=== PATIENT | male | born 1940 | race Caucasian/White ===

== ENCOUNTER 2017-07-29 08:30 | Observation (INO) ==
[2017-07-29] MEDS ORDERED: HYDROmorphone 2 MG/ML SYRINGE IV SCH (09:00)
[2017-07-29] MEDS ORDERED: KETOROLAC 15 MG/ML VIAL IV ONE ×2 (09:33→23:10)
--- NOTE | 2017-07-29 09:36 | Emergency Department Note ---
Upper Extremity HPI - General Chief Complaint: Extremity Injury, Upper Stated Complaint: Right elbow pain Time Seen by Provider: 07/29/17 08:45 Source: patient Mode of arrival: wheelchair Limitations: no limitations - History of Present Illness HPI Narrative: This patient has had right elbow pain and swelling for the last several days. He has never had gout or any other joint swelling or arthritis. No history of trauma. No fever or chills. MD Complaint: Injury to:: right, elbow Onset (ago): day(s) Other Injuries: none - Related Data Home Medications Medication Instructions Recorded Confirmed Ascorbic Acid [Vitamin C] 1,000 mg PO HS 02/17/16 07/29/17 Aspirin 81 mg CHEWED DAILY 02/17/16 07/29/17 Finasteride [Proscar] 5 mg PO DAILY 02/17/16 07/29/17 Furosemide [Lasix] 20 mg PO Q2D 02/17/16 07/29/17 HYDROcodone/APAP 10/325MG [[place] 2 tab PO Q4H PRN 02/17/16 07/29/17 10/325Mg] Lisinopril/Hydrochlorothiazide 1 tab PO DAILY 02/17/16 07/29/17 [Zestoretic 20-25 mg Tablet] Loteprednol Etabonate [Lotemax] 1 drp RIGHT EYE HS 02/17/16 07/29/17 Omeprazole [Prilosec] 20 mg PO ACB 02/17/16 07/29/17 Oxybutynin Chloride [Ditropan] 5 mg PO BID 02/17/16 07/29/17 Potassium Chloride [Kdur] 10 meq PO BIDCC 02/17/16 07/29/17 Pravastatin [Pravachol] 40 mg PO HS 02/17/16 07/29/17 Warfarin [Coumadin] 2.5 mg PO TUSA@209902/17/16 07/29/17 Warfarin [Coumadin] 5 mg PO SUMOWETHFR@209902/17/16 07/29/17 ofloxacin 0.3 % eye drops 1 drp OPHTHALMIC BIDP PRN ml 03/05/17 07/29/17 vitamins A,C,F-hyct-hcldut 14,320 1 cap PO DAILY 03/05/17 07/29/17 unit-226 mg-200 unit capsule Previous Rx's Medication Instructions Recorded Docusate Sodium [Colace] 100 mg PO BID #60 cap 06/07/17 Allergies Allergy/AdvReac Type Severity Reaction Status Date / Time No Known Drug Allergies Allergy Verified 07/29/17 08:36 Review of Systems All systems ED: reviewed and negative except as stated. Past Medical History - Past Medical History [facility] Narrative: Medical History Back pain (Chronic) Skin cancer (Chronic) Actinic keratosis (Chronic) Rosacea (Chronic) Urge incontinence (Chronic) Spinal stenosis, lumbar region (Chronic) Neuropathy (Chronic) Spinal stenosis in cervical region (Chronic) Osteoarthritis (Chronic) Cervical radiculopathy (Chronic) Obesity (Chronic) Hypoxemia (Chronic) COPD (chronic obstructive pulmonary disease) (Chronic) GERD (gastroesophageal reflux disease) (Chronic) DVT (deep venous thrombosis) (Chronic) History of Coumadin therapy (Chronic) Ankle edema (Chronic) Fasting hyperglycemia (Chronic) Pure hypercholesterolemia (Chronic) Hypertension (Chronic) Diaphoresis (Chronic) Stasis dermatitis (Chronic) Urinary urgency (Chronic) Urinary frequency (Chronic) History of lumbar laminectomy (Chronic) Past Surgical History Hx of total knee arthroplasty (Chronic) S/P tonsillectomy (Acute) History of fusion of cervical spine (Chronic) History of repair of rotator cuff (Chronic) History of umbilical hernia repair (Chronic) Status post shoulder joint replacement (Chronic) Family History Mother Diabetes Other Hypertension - Social History smoking status: Former smoker Physical Exam Right elbow is swollen and slightly warm without erythema but does show marked pain with any sort of motion. Limitations: no limitations General appearance: alert Head: atraumatic Eye: Present: normal appearance ENT: normal exam Neck: Present: normal inspection Chest: Present: normal inspection Respiratory: Present: normal lung sounds bilaterally Cardiovascular: Present: regular rate, normal rhythm, normal heart sounds Neurological: Present: alert Psychiatric: Present: normal affect, normal mood Skin: Present: warm, dry, intact Course Vital Signs Temperature 99.6 F H 07/29/17 08:30 Pulse Rate 79 07/29/17 08:30 Respiratory Rate 18 07/29/17 08:30 Blood Pressure 153/93 07/29/17 08:30 Pulse Oximetry (%) 96 07/29/17 08:30 Temperature 99.6 F H 07/29/17 08:30 Pulse Rate 86 07/29/17 12:00 Respiratory Rate 18 07/29/17 08:30 Blood Pressure 152/81 07/29/17 11:32 Pulse Oximetry (%) 95 07/29/17 12:00 Extremity Injury, Upper - MDM Narrative Medical decision making narrative: The radiologist aspirated this elbow under ultrasound guidance. The cell count was 111,000. I discussed this case with Dr. Rodriguez and will admit him the hospital on the hospitalist service. Dr. Rodriguez questioned him to get some FFP to reverse his INR and he will taken to surgery to washout the joint. He is given 2 g of Ancef now. - Lab Data Lab results reviewed: Yes I reviewed the patient's lab results. Result diagrams: 07/29/17 10:14 07/29/17 10:14 Lab Results 07/29/17 07/29/17 07/29/17 Range/Units 10:14 10:14 10:14 WBC 12.9 H (4.5-11.0) K/mcL RBC 4.52 (4.50-5.90) M/mcL Hgb 12.9 L (13.5-16.5) g/dL Hct 38.8 L (41.0-55.0) % MCV 86.0 (80.0-100.0) fL MCH 28.5 (26.0-34.0) pg MCHC 33.2 (31.0-36.0) g/dL RDW 14.3 (11.5-14.5) % Plt Count 225 (140-440) K/mcL MPV 7.6 (7.4-10.4) fL Gran % 82.3 H (38.0-78.0) % Lymph % (Auto) 9.1 L (15.5-49.0) % Pine % (Auto) 8.3 (1.0-12.0) % Eos % (Auto) 0 (0.0-7.0) % Baso % (Auto) 0.3 (0.0-2.0) % Gran # 10.6 H (1.8-8.0) K/mcL Lymph # (Auto) 1.2 L (1.5-4.8) K/mcL Pine # (Auto) 1.1 H (0.1-0.9) K/mcL Eos # (Auto) 0 (0.0-0.7) K/mcL Baso # (Auto) 0 (0.0-0.3) K/mcL ESR 27 H (0-15) mm/hr PT 28.6 H (11.9-14.5) sec INR 2.6 H (0.9-1.1) Sodium 139 (133-145) mmol/L Potassium 4.7 (3.3-5.1) mmol/L Chloride 97 (96-108) mmol/L Carbon Dioxide 29 (22-30) mmol/L Anion Gap 13.0 (8-16) BUN 19 (8-23) mg/dl Creatinine 0.7 (0.7-1.2) mg/dl GFR Calculation 90 Glucose 139 H (70-105) mg/dL Uric Acid 3.5 (2.5-8.0) mg/dL Calcium 9.1 (8.6-10.4) mg/dl Total Bilirubin 0.3 (0.0-1.0) mg/dL AST 25 (0-37) U/l ALT 13 (0-40) U/l Alkaline Phosphatase 106 (39-117) U/L C-React Prot High Sens 58.3 H (1.0-3.0) mg/L Total Protein 6.7 (5.9-8.4) gm/dL Albumin 3.9 (3.2-5.2) gm/dL Globulin 2.8 (2.2-3.7) gm/dL Albumin/Globulin Ratio 1.4 (1.0-2.3) Fluid Source Fluid Color Fluid Appearance Fluid RBC /cumm Fluid Tot Cell Count Fluid Nucleated Cells /cumm Fluid Neutrophils % Fluid Lymphocytes % Fluid Monocytes Fluid Eosinophils Fluid Basophils Fluid Plasma Cells Fluid Macrophages Fld Mesothelial Cells 07/29/17 Range/Units 13:35 WBC (4.5-11.0) K/mcL RBC (4.50-5.90) M/mcL Hgb (13.5-16.5) g/dL Hct (41.0-55.0) % MCV (80.0-100.0) fL MCH (26.0-34.0) pg MCHC (31.0-36.0) g/dL RDW (11.5-14.5) % Plt Count (140-440) K/mcL MPV (7.4-10.4) fL Gran % (38.0-78.0) % Lymph % (Auto) (15.5-49.0) % Pine % (Auto) (1.0-12.0) % Eos % (Auto) (0.0-7.0) % Baso % (Auto) (0.0-2.0) % Gran # (1.8-8.0) K/mcL Lymph # (Auto) (1.5-4.8) K/mcL Pine # (Auto) (0.1-0.9) K/mcL Eos # (Auto) (0.0-0.7) K/mcL Baso # (Auto) (0.0-0.3) K/mcL ESR (0-15) mm/hr PT (11.9-14.5) sec INR (0.9-1.1) Sodium (133-145) mmol/L Potassium (3.3-5.1) mmol/L Chloride (96-108) mmol/L Carbon Dioxide (22-30) mmol/L Anion Gap (8-16) BUN (8-23) mg/dl Creatinine (0.7-1.2) mg/dl GFR Calculation Glucose (70-105) mg/dL Uric Acid (2.5-8.0) mg/dL Calcium (8.6-10.4) mg/dl Total Bilirubin (0.0-1.0) mg/dL AST (0-37) U/l ALT (0-40) U/l Alkaline Phosphatase (39-117) U/L C-React Prot High Sens (1.0-3.0) mg/L Total Protein (5.9-8.4) gm/dL Albumin (3.2-5.2) gm/dL Globulin (2.2-3.7) gm/dL Albumin/Globulin Ratio (1.0-2.3) Fluid Source Right elbow Fluid Color Red Fluid Appearance Turbid Fluid RBC > [id number] /cumm Fluid Tot Cell Count 100 Fluid Nucleated Cells [id number] /cumm Fluid Neutrophils 97 % Fluid Lymphocytes 3 % Fluid Monocytes Not Reportable Fluid Eosinophils Not Reportable Fluid Basophils Not Reportable Fluid Plasma Cells Not Reportable Fluid Macrophages Not Reportable Fld Mesothelial Cells Not Reportable Disposition Pt seen by [facility]/PA only: No Clinical Impression: Septic arthritis of elbow, right Disposition: Xfer As Outpt/Obs ([facility]) Condition: Good Referrals: Blanca Marrero MD [Primary Care Provider] - Time of Disposition: 16:11
[2017-07-29] MEDS ORDERED: HYDROmorphone 2 MG/ML SYRINGE IM ONE (09:39)
--- NOTE | 2017-07-29 10:15 | XRay Report ---
HISTORY: Reason for Exam:severe pain at right elbow FINDINGS: There is a large amount soft tissue swelling surrounding the elbow. There may be a joint effusion. No healed fractures seen involving the radial head. There is also a bone fragment adjacent to the lateral epicondyle which is well-corticated and measures 5 x 9 mm. There is a larger well-corticated dystrophic calcification above the lateral epicondyle which measures 1.6 x 2.0 cm. No donor site is seen. There is spurring of the coronoid process of the ulna. No bone erosion or periosteal elevation are present. IMPRESSION: Large amount of soft tissue swelling surrounding the elbow which may be due to edema or cellulitis Joint effusion which may be due to the underlying arthritis or a septic joint. There is no radiographic evidence of osteomyelitis Interpreted and Authenticated by: Neno Doty 07/29/17
[2017-07-29 10:48] LABS: Basophils # (Auto) 0 K/mcL (0.0-0.3); Basophils % (Auto) 0.3 % (0.0-2.0); Eosinophils # (Auto) 0 K/mcL (0.0-0.7); Eosinophils % (Auto) 0 % (0.0-7.0); Granulocytes % (Auto) 82.3 % (38.0-78.0); Lymphocytes # (Auto) 1.2 K/mcL (1.5-4.8); Lymphocytes % (Auto) 9.1 % (15.5-49.0); Mean Corpuscular HGB Conc 33.2 g/dL (31.0-36.0); Mean Corpuscular Hemoglobin 28.5 pg (26.0-34.0); Monocytes # (Auto) 1.1 K/mcL (0.1-0.9); Monocytes % (Auto) 8.3 % (1.0-12.0); Platelet Count 225 K/mcL (140-440); RBC 4.52 M/mcL (4.50-5.90); Red Cell Distribution Width 14.3 % (11.5-14.5)
[2017-07-29 11:16] LABS: ALT/SGPT 13 U/l (0-40); Albumin 3.9 gm/dL (3.2-5.2); Albumin/Globulin Ratio 1.4 (1.0-2.3); Alkaline Phosphatase 106 U/L (39-117); Blood Urea Nitrogen 19 mg/dl (8-23); Uric Acid 3.5 mg/dL (2.5-8.0)
[2017-07-29 11:20] LABS: CRP,High Sensitivity 58.3 mg/L (1.0-3.0)
[2017-07-29 11:33] LABS: Erythrocyte Sedimentation Rate 27 mm/hr (0-15)
--- NOTE | 2017-07-29 13:38 | Ultrasound Report ---
History: Severe elbow pain with joint effusion. Patient is anticoagulated Technique: The procedure risks were spine the patient consented. A complex collection of fluid was localized along the posterior lateral border of the elbow joint. The overlying skin was prepped with ChloraPrep then anesthetized with 1% lidocaine. Using ultrasound guidance a Yueh needle was inserted into the fluid collection. The fluid collection is under pressure and squirted through the needle after removal of the stylette. 17 cc of purulent bloody fluid was removed. Not all of the fluid could be drained since it is multiloculated and the patient was in too much pain for the to aspirate from multiple sites. The fluid was sent to laboratory for analysis. He had no abnormal bleeding following the procedure. Impression: Successful aspiration of purulent bloody fluid from the right elbow Interpreted and Authenticated by: Neno Doty 07/29/17
[2017-07-29 15:56] LABS: Appearance, Body Fluid TURBID; Color, Body Fluid RED; Nucleated Cells,Body Fld 111520 /cumm; RBC, Body Fluid > 100000 /cumm; Total Cell Count Body Fld 100
[2017-07-29] MEDS ORDERED: ceFAZolin 1 GM VIAL IV ONE (16:07)
[2017-07-29] MEDS ORDERED: LACTATED RINGERS 1,000 ML IV SCH ×3 (16:15→22:00)
[2017-07-29] MEDS ORDERED: 0.9 % SODIUM CHLORIDE 250 ML IV SCH (17:00)
[2017-07-29] MEDS ORDERED: ACETAMINOPHEN 325 MG TABLET PO PRN ×2 (17:53→23:56)
[2017-07-29] MEDS ORDERED: HYDROcodone/APAP 10/325MG TABLET PO PRN ×2 (17:53→23:00)
[2017-07-29] MEDS ORDERED: ONDANSETRON 4 MG/2 ML VIAL IV PRN ×4 (17:53→23:56)
--- NOTE | 2017-07-29 17:53 | Internal Med History&Physical ---
Medical - H&P: HPI Patient information: Note initiated : 07/29/17 at 5:47 pm Service Date, if different from initiated Date: [] Patient: Ken Dwyer 76 y/o M admitted on 07/29/17 for Right elbow pain. 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 History is obtained in speaking to the patient, his , Dr. Gaona in the ED as well as reviewing records available. Patient was seen by Dr. Page on 07/19, at that time he is having some pain in the right elbow. He does have a history of past ulnar nerve surgery in that elbow, and it was felt to be secondary to that. He had no swelling or warmth in the elbow at that time. He had stable minor pain in the elbow until yesterday when he became rapidly progressive. The pain was severe in nature. It hurt with any movement of the elbow. There was pain with dangling with gravity. Overnight it became worse. He had to use hydrocodone for the pain, normally he uses hydrocodone intermittently during the day for back pain, had used more for his elbow pain. Eventually had sleep in a chair to try to find a comfortable position. Early this morning he presents to the emergency department. Patient is on warfarin as noted, his INR is 2.6. Patient eventually had aspiration of his right elbow joint with infected looking fluid aspirated with 111,000 white cells on cell count. Dr. Rodriguez for orthopedics was consult. He plans to take the patient for washout of the right elbow. He is now being hospitalized for reversal of his INR prior to that procedure. Patient really only has complaints of elbow pain. He's had no fever or chills. No cough or sputum production. He's had no chest pain or tightness. Physical activity is unlimited due to dyspnea, though his physical activity is limited due to arthritis and prior knee replacements. He has no history coronary disease, no history of CHF. He does have a history of COPD, uses oxygen night, apparently for sleep apnea purposes. No cough or sputum production is noted, no chest tightness, no wheezing. No nausea or vomiting, no diarrhea, no abdominal pain, no focal neurologic symptoms. He's had no recent worsening of chronic mild lower extremity edema. He does use Lasix for his edema. He does not recall the inciting event for his DVTs, has been maintained on warfarin for several years to prevent recurrence. Review of systems: Except as noted in history of present illness, a full 11 point review of systems is otherwise negative. Medical - H&P: PMH Medical history: Septic arthritis of elbow, right (Acute) Back pain (Chronic) Skin cancer (Chronic) Actinic keratosis (Chronic) Rosacea (Chronic) Urge incontinence (Chronic) Spinal stenosis, lumbar region (Chronic) Neuropathy (Chronic) Spinal stenosis in cervical region (Chronic) Osteoarthritis (Chronic) Cervical radiculopathy (Chronic) Obesity (Chronic) Hypoxemia (Chronic) COPD (chronic obstructive pulmonary disease) (Chronic) GERD (gastroesophageal reflux disease) (Chronic) DVT (deep venous thrombosis) (Chronic) History of Coumadin therapy (Chronic) Ankle edema (Chronic) Fasting hyperglycemia (Chronic) Pure hypercholesterolemia (Chronic) Hypertension (Chronic) Diaphoresis (Chronic) Stasis dermatitis (Chronic) Urinary urgency (Chronic) Urinary frequency (Chronic) History of lumbar laminectomy (Chronic) Surgical history: Hx of total knee arthroplasty (Chronic) S/P tonsillectomy (Acute) History of fusion of cervical spine (Chronic) History of repair of rotator cuff (Chronic) History of umbilical hernia repair (Chronic) Status post shoulder joint replacement (Chronic) Pertinent family history: No history of thromboembolic disease. There is a history of diabetes and hypertension. Social history: The patient is a former smoker. Some alcohol Use Medical - H&P: Meds Home Medications Medication Instructions Recorded Confirmed Type Ascorbic Acid [Vitamin C] 1,000 mg PO HS 02/17/16 07/29/17 History Aspirin 81 mg CHEWED DAILY 02/17/16 07/29/17 History Finasteride [Proscar] 5 mg PO DAILY 02/17/16 07/29/17 History Furosemide [Lasix] 20 mg PO Q2D 02/17/16 07/29/17 History HYDROcodone/APAP 10/325MG [[place] 2 tab PO Q4H PRN 02/17/16 07/29/17 History 10/325Mg] Lisinopril/Hydrochlorothiazide 1 tab PO DAILY 02/17/16 07/29/17 History [Zestoretic 20-25 mg Tablet] Loteprednol Etabonate [Lotemax] 1 drp RIGHT EYE HS 02/17/16 07/29/17 History Omeprazole [Prilosec] 20 mg PO ACB 02/17/16 07/29/17 History Oxybutynin Chloride [Ditropan] 5 mg PO BID 02/17/16 07/29/17 History Potassium Chloride [Kdur] 10 meq PO BIDCC 02/17/16 07/29/17 History Pravastatin [Pravachol] 40 mg PO HS 02/17/16 07/29/17 History Warfarin [Coumadin] 2.5 mg PO TUSA@209902/17/16 07/29/17 History Warfarin [Coumadin] 5 mg PO SUMOWETHFR@209902/17/16 07/29/17 History vitamins A,C,P-odug-chsuwg 14,320 1 cap PO DAILY 03/05/17 07/29/17 History unit-226 mg-200 unit capsule Docusate Sodium [Colace] 100 mg PO BID #60 cap 06/07/17 07/29/17 Rx Allergies Allergy/AdvReac Type Severity Reaction Status Date / Time No Known Drug Allergies Allergy Verified 07/29/17 08:36 Medical - H&P: Exam - Constitutional Vitals: Temp Pulse Resp BP Pulse Ox 99.6 F H 86 18 152/81 95 07/29/17 08:30 07/29/17 12:00 07/29/17 08:30 07/29/17 11:32 07/29/17 12:00 Exam: General: Alert, in no acute distress HEENT: Normocephalic. Pupils are equally round and reactive to light. Sclera are anicteric. 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 No conjunctival injection. Tongue is midline. Neck: Supple, no meningismus. No thyromegaly. Chest: Clear to auscultation bilaterally with no rales or wheezes. No accessory muscle use. Cardiovascular: Regular rate and rhythm without murmur gallop or rub. Carotid pulses are 2+ without bruit. There is 1+ lower extremity edema. JVP is normal. Abdomen: Soft, obese, nontender without guarding or rebound. Active bowel sounds. No hepatosplenomegaly appreciated, though exam limited by body habitus. Skin: Warm, dry. No rash. Skin turgor is normal.. Chronic venous stasis changes bilateral distal legs. Musculoskeletal: Edema with faint erythema of the right elbow. There is pain with any passive or active range of motion. No crepitus. Left elbow is without swelling or pain. Digits without cyanosis or clubbing. Neuro: Alert, oriented X3. Cranial nerves II through XII grossly intact. Sensation intact to light touch. Psychiatric: Affect and orientation are normal. Good insight. Medical - H&P: Reslt - Labs CBC & Chem 7: 07/29/17 10:14 07/29/17 10:14 Labs: Short CBC 07/29/17 Range/Units 10:14 WBC 12.9 H (4.5-11.0) K/mcL Hgb 12.9 L (13.5-16.5) g/dL Hct 38.8 L (41.0-55.0) % Plt Count 225 (140-440) K/mcL BMP 07/29/17 10:14 Sodium 139 Potassium 4.7 Chloride 97 Carbon Dioxide 29 BUN 19 Creatinine 0.7 Glucose 139 H Calcium 9.1 Liver Function 07/29/17 Range/Units 10:14 Total Bilirubin 0.3 (0.0-1.0) mg/dL AST 25 (0-37) U/l ALT 13 (0-40) U/l Alkaline Phosphatase 106 (39-117) U/L Albumin 3.9 (3.2-5.2) gm/dL Microbiology 07/29/17 13:35 Gram Stain - Final Drainage - Right Arm no organisms seen Body fluid cell count: >100,000 RBC, 111,520 nucleated cells, 97% neutrophils - Impressions Elbow XR IMPRESSION: Large amount of soft tissue swelling surrounding the elbow which may be due to edema or cellulitis Joint effusion which may be due to the underlying arthritis or a septic joint. There is no radiographic evidence of osteomyelitis Medical - H&P: A/P (1) Septic arthritis of elbow, right Current visit: Yes Status: Acute - Narrative A/P Narrative: 76-year-old male presenting with acute worsening of right elbow pain associated with erythema. Diagnostic arthrocentesis consistent with septic joint. Septic right elbow. Surgical washout will be complicated by his coagulopathy from therapeutic use of warfarin. INR is 2.6. Suspect staph or strep as etiology. Plan: 1. Hospitalization observation 2. 2 units of fresh frozen plasma 3. Orthopedic consult, Dr. Rodriguez called by the ED 4. To the OR for washout. 5. Ancef given in the ED, we'll discuss which antibiotics to continue postoperatively, follow-up culture. History of deep venous thrombosis, on warfarin. INR 2.6 and therapeutic at presentation. He took his last warfarin this morning, is 2.5 mg, which was a missed dose from yesterday evening. Plan: FFP to acutely reverse INR for surgery. We will use Lovenox for DVT prophylaxis along with SCDs while he is hospitalized. INR can be allowed to drift out at discharge. COPD, no evidence of exacerbation. Hypertension. Apparently controlled on home regimen. Plan: Continue. Hypercholesterolemia, on statin Plan: Continue Surgical risk: No further risk stratification prior to going to the OR. No evidence of decompensated heart failure or of COPD exacerbation. No prior history of coronary artery disease, he has tolerated anesthesia in the past, most recently a month and a half ago with a shoulder replacement. CODE STATUS is full code. Prophylaxis: Lovenox and PPI.
[2017-07-29] MEDS: 0.9 % SODIUM CHLORIDE 10 ML SYRINGE IV SCH (18:58)
--- NOTE | 2017-07-29 19:57 | Ultrasound Report ---
History: New onset severe right elbow pain Findings: There is a complex fluid collection along the posterior lateral aspect of the elbow joint. Measures approximately 2.9 x 4.7 cm. Contains both fluid and solid components. Impression: Complex fluid collection around the elbow. This could be a septic joint or hemarthrosis Interpreted and Authenticated by: Neno Doty 07/29/17
[2017-07-29] MEDS ORDERED: SIMVASTATIN 20 MG TABLET PO SCH (21:00)
[2017-07-29] MEDS ORDERED: DOCUSATE SODIUM 100 MG CAPSULE PO SCH (21:00)
--- NOTE | 2017-07-29 21:32 | Orthopedic Consult Note ---
History of Present Illness - HPI Patient information: Note initiated : 07/29/17 at 9:27 pm Service Date, if different from initiated Date: [] Patient: Ken Dwyer 76 y/o M admitted on 07/29/17 for Right elbow pain. Chief Complaint: [right elbow pain Patient came to the ER complaining of severe right elbow pain that worsened this past Sunday. He had a reverse total shoulder arthroplasty with Dr. Peralta on June 06 and reports elbow pain since that time, however it worsened this past Sunday without known injury. He denies any wounds or drainage from the elbow as well as any prior history of a septic joint or gout. He reports some numbness and tingling in his small and ring finger on that side as well as some forearm and wrist discomfort. He denies shoulder or neck pain. The patient denies nausea, vomiting, fever, chills or recent infection of any kind. He has a PMH significant for neuropathy, OA, cervical radiculopathy, COPD, DVT, HTN. He has had multiple surgeries and denies anesthetic complications. The patient is a former tobacco user. On arrival, the elbow was aspirated under US guidance and found to have a cell count of 111,000 and an elevated CRP. His INR was above 2 so the patient was given FFP.] Consult date: 07/29/17 Consult reason: joint pain Review of Systems Constitutional: no chills, no fever(s) Cardiovascular: dyspnea, no chest pain, no palpatations Respiratory: no cough, no dyspnea, no wheezing Musculoskeletal: arthralgias, joint swelling, limited range of motion, numbness , tingling Musculoskeletal: right: elbow pain, elbow stiffness, elbow swelling Medications and Allergies Home Medications Medication Instructions Recorded Confirmed Type Ascorbic Acid [Vitamin C] 1,000 mg PO HS 02/17/16 07/29/17 History Aspirin 81 mg CHEWED DAILY 02/17/16 07/29/17 History Finasteride [Proscar] 5 mg PO DAILY 02/17/16 07/29/17 History Furosemide [Lasix] 20 mg PO Q2D 02/17/16 07/29/17 History HYDROcodone/APAP 10/325MG [[place] 2 tab PO Q4H PRN 02/17/16 07/29/17 History 10/325Mg] Lisinopril/Hydrochlorothiazide 1 tab PO DAILY 02/17/16 07/29/17 History [Zestoretic 20-25 mg Tablet] Loteprednol Etabonate [Lotemax] 1 drp RIGHT EYE HS 02/17/16 07/29/17 History Omeprazole [Prilosec] 20 mg PO ACB 02/17/16 07/29/17 History Oxybutynin Chloride [Ditropan] 5 mg PO BID 02/17/16 07/29/17 History Potassium Chloride [Kdur] 10 meq PO BIDCC 02/17/16 07/29/17 History Pravastatin [Pravachol] 40 mg PO HS 02/17/16 07/29/17 History Warfarin [Coumadin] 2.5 mg PO TUSA@209902/17/16 07/29/17 History Warfarin [Coumadin] 5 mg PO SUMOWETHFR@209902/17/16 07/29/17 History vitamins A,C,R-fcam-zwpfoj 14,320 1 cap PO DAILY 03/05/17 07/29/17 History unit-226 mg-200 unit capsule Docusate Sodium [Colace] 100 mg PO BID #60 cap 06/07/17 07/29/17 Rx Allergies Allergy/AdvReac Type Severity Reaction Status Date / Time No Known Drug Allergies Allergy Verified 07/29/17 08:36 Physical Examination - Elbow right Location of pain: anterior, posterior, medial, lateral, forearm, other Pain modifiers: with motion, at rest Stiffness: unable to fully bend, unable to fully straighten, unable to fully supinate, unable to fully pronate Swelling: of the elbow Appearance: swelling, warmth Tenderness with palpation: radiocapitellar, ulnotrochlear, olecranon Strength: body sander: 5/5 Tests: Tinel's sign ulnar nerve: positive Assessment and Plan (1) Septic arthritis of elbow, right Assessment: septic arthritis of right elbow Plan: -After the patient's elbow was examined by myself and Dr. Rodriguez, the recommended course of action is an I&D of the right elbow. The US guided aspirate showed a high cell count with high neutrophil content. A septic right elbow is highly suspected. We discussed the recommended procedure at length with the patient including the potential risks and benefits associated with surgery such as risk of infection, blood clot, wound healing delay, injury to heart and lungs associated with anesthesia. No guarantees were made. The patient understands the risks and wishes to proceed with surgery. The surgery is scheduled for today with Dr. Rodriguez. -admitted overnight for IV antibiotics -post op orders will be entered by Dr. Rodriguez Status: Acute Exam Vital signs: Temp Pulse Resp BP Pulse Ox 99.4 F H 81 20 147/91 94 07/29/17 18:57 07/29/17 18:57 07/29/17 18:57 07/29/17 18:57 07/29/17 20:00 Constitutional: well developed, well nourished, no acute distress Head: normocephalic, atraumatic Respiratory: clear to auscultation bilaterally Cardiovascular: regular rate & rhythm with no murmurs, rubs or gallops, no thrill or palpable murmurs, other (stasis dermatitis, 3+ pitting edema bilaterally) Skin: no rashes, no lesions Neurologic: sensation intact to touch Psychiatric: oriented to person, place and time Additional findings: Radial pulses 2+ b/l. B/l UE NVI to light touch and motor grossly intact
[2017-07-29] MEDS ORDERED: MEPERIDINE 25 MG/ML SYRINGE IV PRN (21:51)
[2017-07-29] MEDS ORDERED: METHOCARBAMOL 1,000 MG/10 ML VIAL IV PRN (21:51)
[2017-07-29] MEDS ORDERED: fentaNYL 100 MCG/2 ML VIAL IV PRN (21:51)
[2017-07-29] MEDS ORDERED: IPRATROPIUM/ALBUTEROL 3 ML AMPUL.NEB NEB PRN (21:51)
[2017-07-29] MEDS ORDERED: MIDAZOLAM 2 MG/2 ML VIAL IV ONE (22:05)
[2017-07-29] MEDS ORDERED: GLYCOPYRROLATE 0.2 MG/ML VIAL IV ONE (22:05)
[2017-07-29] MEDS ORDERED: KETAMINE 100 MG/ML ML IV ONE (22:05)
[2017-07-29] MEDS ORDERED: ONDANSETRON 4 MG/2 ML VIAL IV ONE (22:05)
[2017-07-29] MEDS ORDERED: ETOMIDATE 20 MG/10 ML VIAL IV ONE (22:05)
[2017-07-29] MEDS ORDERED: GENTAMICIN SULFATE 800 MG/20 ML VIAL IR ONE (22:38)
[2017-07-29] MEDS ORDERED: VANCOMYCIN 1,000 MG in 0.9 % SODIUM CHLORIDE 250 ML IV SCH (23:00)
[2017-07-29] MEDS ORDERED: METHOCARBAMOL 750 MG TABLET PO PRN (23:00)
[2017-07-29] MEDS ORDERED: BENZOCAINE/MENTHOL 1 LOZENGE PO PRN ×2 (23:00→23:56)
[2017-07-29] MEDS ORDERED: 0.9 % SODIUM CHLORIDE 1,000 ML IV SCH (23:00)
--- NOTE | 2017-07-29 23:00 | Brief Operative Note ---
Date of procedure: 07/29/17 Pre-op diagnosis: right elbow intraarticular infection Post-op diagnosis: same Procedure: right elbow arthrotomy, irrigation and debridement of infection; aspiration of wrist joint Grafts/Implants: Yes Anesthesia: GETA Complications: none Surgeon: Lucio Rodriguez Rag Collector: Delia Cote Estimated blood loss (cc): 20 Specimens Removed/Pathology: other (culture elbow and wrist) Condition: stable Disposition: PACU
[2017-07-29] MEDS ORDERED: VANCOMYCIN PER PHARMACY IV ONE (23:05)
[2017-07-29] MEDS ORDERED: ACETAMINOPHEN 1,000 MG/100 ML BOTTLE IV ONE (23:11)
[2017-07-29] MEDS ORDERED: VANCOMYCIN 1,500 MG in 0.9 % SODIUM CHLORIDE 500 ML IV ONE (23:15)
[2017-07-29] MEDS ORDERED: VANCOMYCIN 500 MG VIAL ONE (23:35)
[2017-07-30] MEDS: 0.9 % SODIUM CHLORIDE 1,000 ML IV SCH ×3 (00:08→16:04)
[2017-07-30] MEDS: LACTATED RINGERS 1,000 ML IV SCH ×2 (00:34→10:13)
[2017-07-30] MEDS: 0.9 % SODIUM CHLORIDE 10 ML SYRINGE IV SCH ×5 (00:35→20:44)
[2017-07-30] MEDS: METHOCARBAMOL 750 MG TABLET PO PRN ×2 (00:47→19:27)
[2017-07-30] MEDS ORDERED: METHOCARBAMOL 750 MG TABLET PO ONE (00:55)
[2017-07-30] MEDS: HYDROcodone/APAP 10/325MG TABLET PO PRN ×6 (03:11→23:09)
[2017-07-30] MEDS ORDERED: HYDROcodone/APAP 10/325MG TABLET PO ONE (03:17)
[2017-07-30] MEDS ORDERED: 0.9 % SODIUM CHLORIDE 10 ML SYRINGE IV PRN (04:08)
[2017-07-30 05:46] LABS: Mean Cell Volume 86.1 fL (80.0-100.0); Mean Corpuscular HGB Conc 33.3 g/dL (31.0-36.0); Mean Corpuscular Hemoglobin 28.7 pg (26.0-34.0); Platelet Count 208 K/mcL (140-440); Red Cell Distribution Width 14.4 % (11.5-14.5)
[2017-07-30] MEDS ORDERED: 0.9 % SODIUM CHLORIDE 10 ML SYRINGE IV SCH ×2 (06:00)
[2017-07-30 06:47] LABS: Blood Urea Nitrogen 17 mg/dl (8-23)
[2017-07-30] MEDS: PANTOPRAZOLE 40 MG TABLET PO SCH (07:06)
[2017-07-30] MEDS ORDERED: VANCOMYCIN PER PHARMACY IV SCH (07:15)
[2017-07-30] MEDS ORDERED: PANTOPRAZOLE 40 MG TABLET PO SCH (07:30)
[2017-07-30 08:10] LABS: Band Neutrophils % 1 % (0-10); Eosinophils % (Manual) 1 % (0-7); Lymphocytes % 22 % (15-49); Monocytes % (Manual) 9 % (1-12); RBC Morphology NORMAL (NORMAL); Segmented Neutrophils % 67 % (38-78)
[2017-07-30 08:18] LABS: Platelet Estimate NORMAL (NORMAL)
[2017-07-30] MEDS: LISINOPRIL 20 MG TABLET PO SCH (08:45)
[2017-07-30] MEDS: FINASTERIDE 5 MG TABLET PO SCH (08:45)
[2017-07-30] MEDS: ENOXAPARIN 40 MG/0.4 ML SYRINGE SQ SCH ×2 (08:45→11:32)
[2017-07-30] MEDS: DOCUSATE SODIUM 100 MG CAPSULE PO SCH ×2 (08:45→20:43)
[2017-07-30] MEDS: HYDROCHLOROTHIAZIDE 25 MG TABLET PO SCH (08:45)
[2017-07-30] MEDS ORDERED: HYDROCHLOROTHIAZIDE 25 MG TABLET PO SCH (09:00)
[2017-07-30] MEDS ORDERED: ENOXAPARIN 40 MG/0.4 ML SYRINGE SQ SCH (09:00)
[2017-07-30] MEDS ORDERED: DOCUSATE SODIUM 100 MG CAPSULE PO SCH ×2 (09:00)
[2017-07-30] MEDS ORDERED: FINASTERIDE 5 MG TABLET PO SCH (09:00)
[2017-07-30] MEDS ORDERED: LISINOPRIL 20 MG TABLET PO SCH (09:00)
[2017-07-30] MEDS: VANCOMYCIN 1,500 MG in 0.9 % SODIUM CHLORIDE 500 ML IV SCH ×2 (09:10→20:44)
--- NOTE | 2017-07-30 11:06 | Orthopedic Progress Note ---
Subjective Patient information: Note initiated : 07/30/17 at 11:03 am Service Date, if different from initiated Date: [] Patient: Ken Dwyer 76 y/o M admitted on 07/29/17 for Right elbow pain. Chief Complaint: [] Interval history: doing well. pain much improved Objective Vital signs: Vital Signs Temp Pulse Pulse Pulse Resp BP BP 07/30/17 10:59 98.7 F 18 112/64 07/30/17 08:00 07/30/17 07:28 93 H 16 07/30/17 06:33 98.8 F 20 108/67 07/30/17 03:18 98.6 F 100 H 19 131/79 07/30/17 03:00 98.7 F 105 H 19 107/68 07/30/17 02:10 98.9 F 110 H 20 155/72 07/30/17 01:54 105 H 18 130/72 07/30/17 01:40 108 H 18 126/69 07/30/17 01:25 105 H 18 128/73 07/30/17 01:09 101 H 19 146/77 07/30/17 00:55 98.4 F 96 H 18 149/88 07/30/17 00:30 99.5 F H 96 H 18 159/91 07/30/17 00:14 98.3 F 98 H 18 159/95 07/30/17 00:00 98.3 F 99 H 18 162/90 07/29/17 23:47 99.5 F H 100 H 18 140/83 07/29/17 23:38 99.5 F H 101 H 19 150/87 07/29/17 23:33 99.5 F H 100 H 19 150/87 07/29/17 23:28 100.0 F H 97 H 21 143/83 07/29/17 23:23 100.0 F H 99 H 22 143/86 07/29/17 23:18 100.0 F H 103 H 20 151/89 07/29/17 23:13 100.1 F H 100 H 20 162/86 07/29/17 23:08 102.8 F H 113 H 113 H 20 141/77 07/29/17 21:10 98.8 F 89 19 07/29/17 20:47 99.2 F H 83 18 07/29/17 20:37 98.9 F 89 20 07/29/17 20:30 98.9 F 92 H 19 07/29/17 20:02 98.7 F 88 18 07/29/17 20:00 07/29/17 19:52 98.9 F 84 20 07/29/17 18:57 99.4 F H 81 20 07/29/17 17:48 99.6 F H 82 18 162/76 07/29/17 12:00 86 07/29/17 11:32 152/81 BP Pulse Ox 07/30/17 10:59 95 07/30/17 08:00 96 07/30/17 07:28 96 07/30/17 06:33 96 07/30/17 03:18 91 07/30/17 03:00 94 07/30/17 02:10 96 07/30/17 01:54 96 07/30/17 01:40 96 07/30/17 01:25 97 07/30/17 01:09 97 07/30/17 00:55 97 07/30/17 00:30 97 07/30/17 00:14 94 07/30/17 00:00 94 07/29/17 23:47 93 07/29/17 23:38 91 07/29/17 23:33 90 07/29/17 23:28 92 07/29/17 23:23 91 07/29/17 23:18 92 07/29/17 23:13 91 07/29/17 23:08 97 07/29/17 21:10 157/95 96 07/29/17 20:47 146/80 96 07/29/17 20:37 141/82 97 07/29/17 20:30 148/81 95 07/29/17 20:02 150/78 95 07/29/17 20:00 94 07/29/17 19:52 148/81 94 07/29/17 18:57 147/91 94 07/29/17 17:48 95 07/29/17 12:00 95 07/29/17 11:32 Intake and Output 07/29/17 07/30/17 07/30/17 21:59 05:59 13:59 Intake Total 720 / 720 3780 / 3780 420 / 420 Output Total 251 / 251 1196 / 1196 125 / 125 Balance 469 / 469 2584 / 2584 295 / 295 Intake: IV 2500 / 2500 Lactated Ringers 1,000 ml @ 20 900 / 900 mls/hr IV .Q24H [facility] Rx#: [id number] Oral 1280 / 1280 420 / 420 Fresh Frozen Plasma 720 / 720 Output: Void Amount 250 / 250 1175 / 1175 125 / 125 Straight 700 / 700 # of times incontinent of urine Estimated Blood Loss 20 / 20 Other: Meal Dinner Breakfast Percent of Meal Consumed 100% 100% Feeding Ability Assist with Tray Set Up Assist with Tray Set Up # Voids 1 1 Weight 278 lb Intake & Output: Intake & Output 07/29/17 07/30/17 07/30/17 21:59 05:59 13:59 Intake Total 720 / 720 3780 / 3780 420 / 420 Output Total 251 / 251 1196 / 1196 125 / 125 Balance 469 / 469 2584 / 2584 295 / 295 Weight 278 lb Intake: IV 2500 / 2500 Lactated Ringers 1,000 ml @ 20 900 / 900 mls/hr IV .Q24H [facility] Rx#: [id number] Oral 1280 / 1280 420 / 420 Fresh Frozen Plasma 720 / 720 Output: Void Amount 250 / 250 1175 / 1175 125 / 125 Straight 700 / 700 # of times incontinent of urine Estimated Blood Loss 20 / 20 Other: Meal Dinner Breakfast Percent of Meal Consumed 100% 100% Feeding Ability Assist with Tray Set Up Assist with Tray Set Up # Voids 1 1 Incision: Yes healing Incision clean and dry: Yes Dressing: Yes clean, Yes dry, Yes intact Weight bearing status: non Neurological exam IM: Yes alert, Yes oriented X3, Yes motor sensory intact, Yes neurovascular intact Extremities exam IM: No calf tenderness, Yes normal capillary refill, Yes Foot pink and warm, Yes neurovascular intact - Labs CBC & BMP: 07/30/17 04:25 07/30/17 04:25 Labs: Orthopedic Labs 07/30/17 07/30/17 07/29/17 04:25 04:25 21:40 POC PT 19.1 H PT 20.7 H POC INR 1.6 H INR 1.7 H APTT 62 H 07/29/17 10:14 POC PT PT 28.6 H POC INR INR 2.6 H APTT 07/30/17 07/29/17 04:25 10:14 Hgb 11.5 L 12.9 L Hct 34.4 L 38.8 L Assessment and Plan (1) Septic arthritis of elbow, right pod 1 s/p i and d right elbow nwb pain control picc line iv abx x 3 weeks set up outpt abx before d/c Status: Acute
--- NOTE | 2017-07-30 11:07 | Discharge Summary ---
Ortho Discharge Plan - General - Patient Instructions Diet: Regular Diet Activity: non weight bearing Dressing Care: May shower in 2 days - Problem Maintenance (1) Septic arthritis of elbow, right Status: Acute - Follow Up Plan Follow Up Appointments: Blanca Marrero MD [Primary Care Provider] - Disposition: Home, Self-Care Prognosis: Good Rehab Potential: Good I certify that the patient requires SNF services: No Overall status at discharge: patient is progressing back to baseline
[2017-07-30] MEDS ORDERED: WARFARIN 5 MG TABLET PO SCH (18:00)
[2017-07-30] MEDS ORDERED: SIMVASTATIN 20 MG TABLET PO SCH (21:00)
--- NOTE | 2017-07-30 21:28 | Internal Med Progress Note ---
Medical - PN: Subj Patient information: Note initiated : 07/30/17 at 9:26 pm Service Date, if different from initiated Date: [] Patient: Ken Dwyer 76 y/o M admitted on 07/29/17 for Right elbow pain. Chief Complaint: f/u septic elbow Interval history: July 29 Patient reports the ED after approximately 18 hours of progressively severe right elbow pain associated with edema and warmth. All sound guided arthrocentesis with purulent material, 111,000 nucleated cells, 97% neutrophils. Patient went to the OR on the evening of admission for washout by Dr. Rodriguez. July 30 Patient's elbow feels much better this morning. Still wrapped. Regiments in place for PICC line, which was placed this afternoon. Home IV antibiotics could not yet be arranged. Patient remains hospitalized for further IV antibiotic therapy until discharge planning can be put in place. - Constitutional Vitals: Vital Signs Temp Pulse Resp BP Pulse Ox 98.8 F 111 H 24 H 133/81 93 07/30/17 20:00 07/30/17 20:00 07/30/17 20:00 07/30/17 20:00 07/30/17 20:00 Period Temp Pulse Resp BP Sys/[place] Pulse Ox Last 24 Hr 98.3 F-102.8 F 93-113 16-24 107-162/64-95 90-97 Intake and Output 07/30/17 07/30/17 07/30/17 05:59 13:59 21:59 Intake Total 3780 / 3780 920 / 920 990 / 990 Output Total 1196 / 1196 725 / 725 251 / 251 Balance 2584 / 2584 195 / 195 739 / 739 Weight 279 lb 8 oz Patient Weight 07/31/17 05:59 Weight 279 lb 8 oz Intake & Output: Intake & Output 07/30/17 07/30/17 07/30/17 05:59 13:59 21:59 Intake Total 3780 / 3780 920 / 920 990 / 990 Output Total 1196 / 1196 725 / 725 251 / 251 Balance 2584 / 2584 195 / 195 739 / 739 Weight 279 lb 8 oz Intake: IV 2500 / 2500 500 / 500 Lactated Ringers 1,000 ml @ 20 900 / 900 mls/hr IV .Q24H [facility] Rx#: [id number] Vancomycin 1,500 mg In Sodium 500 / 500 Chloride 0.9% 500 ml @ 333.3 mls/hr IV Q12H [facility] Rx#: [id number] Oral 1280 / 1280 420 / 420 990 / 990 Output: Void Amount 1175 / 1175 725 / 725 250 / 250 Straight 700 / 700 # of times incontinent of urine Estimated Blood Loss Other: Meal Dinner Breakfast Dinner Percent of Meal Consumed 100% 100% 100% Feeding Ability Assist with Tray Set Up Assist with Tray Set Up Assist with Tray Set Up # Voids 1 1 Exam: General: Laying in bed, much better spirits today Chest: Clear to auscultation Cardiovascular: Regular, a bit distant, no murmur appreciated. Abdomen: Obese, soft, nontender Musculoskeletal: Right elbow with dressings in place. Forearm and hand are neurovascularly intact. Neuro: Alert, oriented, moves all extremities as able, though right upper extremity movements limited by pain. Medical - PN: Obj Da - Labs CBC & Chem 7: 07/30/17 04:25 07/30/17 04:25 Labs: Abnormal Lab Results 07/30/17 07/30/17 07/30/17 04:25 04:25 04:25 WBC RBC Hgb Hct Gran % Lymph % (Auto) Gran # Lymph # (Auto) Turner # (Auto) ESR POC PT PT 20.7 H POC INR INR 1.7 H APTT 62 H Glucose 141 H C-React Prot High Sens 07/30/17 07/29/17 07/29/17 04:25 21:40 10:14 WBC RBC 4.00 L Hgb 11.5 L Hct 34.4 L Gran % Lymph % (Auto) Gran # Lymph # (Auto) Turner # (Auto) ESR POC PT 19.1 H PT 28.6 H POC INR 1.6 H INR 2.6 H APTT Glucose C-React Prot High Sens 07/29/17 07/29/17 10:14 10:14 WBC 12.9 H RBC Hgb 12.9 L Hct 38.8 L Gran % 82.3 H Lymph % (Auto) 9.1 L Gran # 10.6 H Lymph # (Auto) 1.2 L Turner # (Auto) 1.1 H ESR 27 H POC PT PT POC INR INR APTT Glucose 139 H C-React Prot High Sens 58.3 H Microbiology 07/30/17 23:30 Gram Stain - Final Aspirate - Other Body Fluid Culture - Preliminary 07/30/17 23:30 Gram Stain - Final Drainage - Other 07/30/17 23:30 Gram Stain - Final Drainage - Other Body Fluid Culture - Preliminary 07/30/17 23:30 Gram Stain - Final Aspirate - Wrist 07/29/17 13:35 Gram Stain - Final Drainage - Right Arm Body Fluid Culture - Preliminary Meds: Medications Acetaminophen (Tylenol) 650 mg PO Q6HP PRN PRN Reason: PAIN/FEVER > 101 Hydrocodone Bitart/Acetaminophen (Walker 10/325mg) 0 tab PO Q4HP PRN PRN Reason: PAIN LEVEL 3-6 Last Admin: 07/30/17 19:27 Dose: 2 tab Docusate Sodium (Colace) 100 mg PO BID [facility] Last Admin: 07/30/17 20:43 Dose: 100 mg Enoxaparin Sodium (Lovenox) 40 mg SQ DAILY [facility] Last Admin: 07/30/17 11:32 Dose: 40 mg Finasteride (Proscar) 5 mg PO DAILY [facility] Last Admin: 07/30/17 08:45 Dose: 5 mg Heparin Sodium (Porcine) (Heparin Flush) 2 ml IV Q12 [facility] Last Admin: 07/30/17 20:43 Dose: 2 ml Hydrochlorothiazide (Oretic) 25 mg PO DAILY [facility] Last Admin: 07/30/17 08:45 Dose: 25 mg Sodium Chloride (Sodium Chloride 0.9%) 1,000 mls @ 125 mls/hr IV .Q8H [facility] Last Admin: 07/30/17 16:04 Dose: Not Given Vancomycin HCl 1,500 mg/ (Sodium Chloride) 500 mls @ 333.3 mls/hr IV Q12H [facility] Last Admin: 07/30/17 20:44 Dose: 333.3 mls/hr Lisinopril (Zestril) 20 mg PO DAILY [facility] Last Admin: 07/30/17 08:45 Dose: 20 mg Methocarbamol (Robaxin) 750 mg PO Q6HP PRN PRN Reason: Muscle Spasm Last Admin: 07/30/17 19:27 Dose: 750 mg Morphine Sulfate (Morphine) 0 mg IV Q1HP PRN PRN Reason: PAIN LEVEL > 6 Ondansetron HCl (Zofran) 4 mg IV Q4HP PRN PRN Reason: Nausea And Vomiting Pantoprazole Sodium (Protonix) 40 mg PO QAMAC [facility] Last Admin: 07/30/17 07:06 Dose: 40 mg Simvastatin (Zocor) 20 mg PO HS [facility] Last Admin: 07/30/17 20:43 Dose: 20 mg Sodium Chloride (Saline Flush) 10 ml IV Q8 [facility] Last Admin: 07/30/17 20:44 Dose: 10 ml Sodium Chloride (Saline Flush) 10 ml IV UD PRN PRN Reason: FLUSH Throat Lozenges (Cepacol) 1 lozenge PO PRN PRN PRN Reason: Sore Throat Vancomycin HCl (Vancomycin Per Pharmacy) 1 order IV UD [facility] Warfarin Sodium (Coumadin) 5 mg PO SuMoWeThFr@1400 [facility] Last Admin: 07/30/17 17:42 Dose: 5 mg Warfarin Sodium (Coumadin) 2.5 mg PO TuSa@1400 [facility] Medical - PN: A/P (1) Septic arthritis of elbow, right Status: Acute Current Visit: Yes - Narrative A/P Narrative: 76-year-old male presenting with acute worsening of right elbow pain associated with erythema. Diagnostic arthrocentesis consistent with septic joint. Septic right elbow. POD#1, s/p surgical washout. Plan: PICC in place, on vancomycin to continue until cultures can guide more specific therapy. Can be discharged once home infusion or outpatient infusion arranged. History of deep venous thrombosis, on warfarin. INR 2.6 and therapeutic at presentation. Partially reversed with FFP prior to going to the OR. Plan: Resuming warfarin postoperatively. Also on SCDs for a full axis. INR can drift out post discharge. COPD, no evidence of exacerbation. Hypertension. Apparently controlled on home regimen. Plan: Continue. Hypercholesterolemia, on statin Plan: Continue Medical - PN: Qual - Stroke Symptom Onset Unknown: No - VTE Deep Vein Thrombosis/Pulmonary Embolism Present on Admission: No
[2017-07-31] MEDS: METHOCARBAMOL 750 MG TABLET PO PRN ×2 (02:31→10:18)
[2017-07-31] MEDS: 0.9 % SODIUM CHLORIDE 1,000 ML IV SCH (02:58)
[2017-07-31] MEDS: HYDROcodone/APAP 10/325MG TABLET PO PRN ×4 (04:27→16:18)
[2017-07-31] MEDS: 0.9 % SODIUM CHLORIDE 10 ML SYRINGE IV SCH ×2 (06:02→15:17)
[2017-07-31] MEDS ORDERED: VANCOMYCIN PER PHARMACY IV SCH (06:32)
[2017-07-31] MEDS: PANTOPRAZOLE 40 MG TABLET PO SCH (07:09)
[2017-07-31] MEDS: ENOXAPARIN 40 MG/0.4 ML SYRINGE SQ SCH (08:21)
[2017-07-31] MEDS: DOCUSATE SODIUM 100 MG CAPSULE PO SCH (08:21)
[2017-07-31] MEDS: FINASTERIDE 5 MG TABLET PO SCH (08:21)
[2017-07-31] MEDS: LISINOPRIL 20 MG TABLET PO SCH (08:21)
[2017-07-31] MEDS: HYDROCHLOROTHIAZIDE 25 MG TABLET PO SCH (08:21)
[2017-07-31] MEDS ORDERED: VANCOMYCIN 1,500 MG in 0.9 % SODIUM CHLORIDE 500 ML IV SCH (09:00)
--- NOTE | 2017-07-31 10:57 | Operative Note ---
DATE OF OPERATION: 07/29/2017 PREOPERATIVE DIAGNOSES: 1. Right septic elbow. 2. Right wrist pain. POSTOPERATIVE DIAGNOSES: 1. Right septic elbow. 2. Right wrist pain. PROCEDURE PERFORMED: 1. Right elbow open arthrotomy with irrigation and debridement for infection. 2. Aspiration, right wrist. SURGEON: Nya Rodriguez M.D. FASHION CONSULTANT SALES: Delia Cote PA-C. ANESTHESIA: General. FINDINGS: 1. Purulent drainage in the right elbow. 2. Aspiration of right wrist. No evidence of infection. SPECIMENS: None. COMPLICATIONS: None. DRAINS: None. DISPOSITION: To PACU in stable condition. INDICATION: The patient is a 76-year-old male. He has had a previous elbow and shoulder surgery. He has had increasing elbow pain since the surgery and has had trouble moving the elbow. This was aspirated under ultrasound and had 112,000 neutrophils with a left shift. It was felt that he did have a septic elbow as he could not move the elbow due to increased pain. He also complained of wrist pain. We talked about different options. He wished to proceed with the above surgical intervention. The risks and benefits were discussed with the patient in detail including, but not limited to, the risks of anesthesia, problems with the heart or lungs related to anesthesia, infection, compromise or injury to the nerves and blood vessels, deep venous thrombosis, pulmonary embolism, pneumonia, continued pain after surgery, worsening pain or symptoms after surgery, swelling, loss of motion, re-tear or failure of repair site, and need for repeat surgery. OPERATIVE NOTE: The patient was seen preoperatively where all questions were answered and the correct side and site were identified and marked. He was given 2 grams of Ancef prior to admittance to the OR. He was then transferred to the operating room and general anesthesia was administered without complication. He was prepped and draped in the usual sterile fashion from the fingers up to the tourniquet which had been placed on his right upper arm. A standard lateral approach was created to the elbow through the skin and subcutaneous tissue, and mobile windows were created medially and laterally. We dissected down to the lateral structures and split the common extensor and came down to the elbow capsule. Retractors were placed. We split in line with the incision through the capsule and got a significant amount of purulent drainage. This was cultured. We then thoroughly irrigated using 3000 mL of gentamycin saline using an Angiocath. We also used Irrisept 300 mL. After thorough irrigation was performed, we used 2-0 Monocryl to close the capsule deep, and then sequentially sutured layers with 2-0 Monocryl out to the skin, and the skin was closed with sha. I aspirated the wrist in a sterile fashion with an 18 gauge needle and aspirated about 2 mL of normal joint fluid. It did not appear to be infected but I did send this for cultures. He was then dressed with Xeroform, 4 x 4, ABD, and an Sunny bandage. He was then extubated, transferred to a stretcher and taken to PACU in stable condition. MORAIMA:zeus Job ID: [id number] Doc ID: [id number] Nya Rodriguez MD
[2017-07-31] MEDS ORDERED: WARFARIN 2.5 MG TABLET PO SCH (14:00)
--- NOTE | 2017-08-01 12:12 | Non-GYN Cytology Report ---
NON CAKE ICER AND PACKER SPECIMEN NG DX CATEGORY Negative MICROSCOPIC DIAGNOSIS ELBOW, RIGHT, PERCUTANEOUS ASPIRATION: -- NEGATIVE FOR MALIGNANT CELLS. -- PREDOMINATELY NEUTROPHILS, SEE COMMENT. (SE:sln) COMMENT: Correlation with cultures and clinical findings is recommended. MICROSCOPIC DESCRIPTION Cytologic preparations consist predominately of mature segmented neutrophils. Occasional monocytes, histiocytes, and lymphocytes are also noted. No atypical or malignant cells are identified. (SEH:sln) CLINICAL HISTORY Right elbow effusion. EXTERNAL COMMENT Electronically Signed by: Chantel Salazar D.O.
== END 2017-07-31 16:35 | disposition home or self-care (01) ==
LOC: ED 08:30 → MEDSUR 08:30
PROVIDERS: ADMIT Internal Medicine; ATTEND Internal Medicine